=== PATIENT | female | born 1985 | race African-American/Black ===

== ENCOUNTER 2016-07-02 15:03 | Emergency (ER) | payer MEDICAID ==
[~2016-07-02] VITALS: Ht 167.6 cm; Wt 72.7 kg
[2016-07-02 17:37] VITALS: BP 143/91
== END 2016-07-02 18:48 | disposition home or self-care (01) ==
LOC: EMS 15:08
DX: S13.4XXA Sprain of ligaments of cervical spine, initial encounter (principal); H66.92 Otitis media, unspecified, left ear; V43.62XA Car passenger injured in collision with other type car in traffic accident, initial encounter; Y93.89 Activity, other specified; Y92.89 Other specified places as the place of occurrence of the external cause; Y99.2 Volunteer activity
CPT/HCPCS: 72040; 99284